=== PATIENT | female | born 1945 | race Caucasian/White ===

== ENCOUNTER → 2018-04-26 10:54 | Outpatient (CLI) | payer MEDICARE, OTHER, SELFPAY | PROVIDERS: PCP Nurse Practitioner Family; Visit Provider Physician Assistant | DX: Z01.818 Encounter for other preprocedural examination (principal) | CPT/HCPCS: 93005 ==

== ENCOUNTER 2018-05-17 06:36 | Inpatient (IN) | payer MEDICARE, BC, SELFPAY ==
[2018-04-25 09:41] VITALS: BMI 31.9
[2018-05-17] VITALS (23 sets, daily range): BP systolic 93–123; BP diastolic 32–84; PULSE 69–101; RESP 10–22; TEMP 36.2–37.6; O2SAT 91–97; BMI 32.6
--- NOTE | 2018-05-17 | DI.RAD.S_ITS ---
PROCEDURE: XR LUMBAR SPINE 2-3V INDICATIONS: L4-5, L5-S1 TLIF TECHNIQUE: 2 views of the lumbar spine were acquired. COMPARISON: [facility], CR, XR LUMBAR SPINE 2 OR 3 VIEWS, 11/15/2017, 11:13. FINDINGS: Bones: Intraoperative AP and lateral images of the lumbosacral junction show the placement of disc spacers at L4-5 and L5-S1, posterior fusion with transpedicular screws and vertical connecting rods bilaterally L4-S1 Soft tissues: Overlying bowel gas pattern is normal. No suspicious soft tissue calcifications. IMPRESSION: Intraoperative imaging of posterior discectomy and fusion L4-5 and L5-S1 Dictated by: Issac Perez M.D. on 05/17/2018 at 11:50 Approved by: Issac Perez M.D. on 05/17/2018 at 11:51
[2018-05-17] MEDS: LACTATED RINGERS 1,000 ML 42 ML IV ×2 (07:15→10:46)
[2018-05-17] MEDS: ALBUTEROL 2.5 MG/3 ML NEB (ADULT) INH ×2 (07:48→11:20)
[2018-05-17] MEDS: ALBUTEROL/IPRATROPIUM 3 ML AMPUL INH (07:52)
[2018-05-17] MEDS: CEFAZOLIN 2 GM/100 ML FROZ.PIGGY IV (07:56)
--- NOTE | 2018-05-17 07:58 | PM.PREOP ---
Pre-operative Note Interval Note Pre-op Check: Yes History & Physical Reviewed by Physician, Yes Exam Performed and Yes History & Physical exam performed today by Physician Changes: No
--- NOTE | 2018-05-17 08:29 | SUR.OPER ---
Prone on spine table, head in foam head support, padded chest and pelvic supports, gel pad at knees, lower legs supported by pillows; nipples, genitalia and toes free of pressure, arms secured on foam padded arm boards at <90 degrees abduction. Tape over blanket at thigh secured to table.
[2018-05-17] MEDS: BUPIVACAINE 0.25% W/ EPI VIAL 30 ML INJ (08:37)
[2018-05-17] MEDS: BUPIVACAINE LIPOSOME 266 MG/20 ML VIAL INJ (10:39)
--- NOTE | 2018-05-17 11:07 | PM.OP.1 ---
Operative Date/Time/Diagnoses Date of procedure: 05/17/18 Time of procedure: 08:08 Pre-op diagnosis: 1. L4-5, L5-S1 spinal stenosis 2. L4-5, L5-S1 spondylosis with radiculopathy Post-op diagnosis: same Procedure & Clinicians Procedure: 1. L4-5, L5-S1 Postero-lateral and posterior interbody fusion 2. L4-5, L5-S1 interbody cage placement. 3. L4-5, L5-S1 decompressive laminectomy with bilateral facetecomies 4. L4-5, L5-S1 Posterior segmental instrumentation 5. [place] of bone marrow from iliac crest 6. Utilization of microsurgical technique and operating microscope Same procedure as scheduled: Yes Indications: Patient has been having chronic back pain and worsening lumbar radiculopathy. Patient failed multiple conservative management with worsening pain weakness and numbness in her lower extremity. Patient has been having difficulty performing activity of daily living. After discussing risks benefits of treatment options, patient elected proceed with surgery. Surgeon: Alyssa Chavez Chimney Sweeper: Cynthia Garner Click Yes if Unassisted: No Anesthesia Type: General Operative Notes Closure Type: primary Specimen(s): none sent Implants & Drains: Globus revolve screws, Rise cage Applied: catheter Estimated Blood Loss (mL): 50 Blood products transfused: none Procedure in detail: Patient was seen in the preoperative area. Risks and benefits of the surgery was discussed with the patient. Informed consent was obtained from the patient and placed in the chart. Surgical site was marked. Patient was taken to the operative room. General anesthesia was administered. Prophylactic antibiotic was given to the patient less than 30 min before the incision was made. Patient was placed into a prone position on the Imtiaz table. Patient's back was then prepped and draped in the sterile fashion. Time-out was performed at this time. Using AP and lateral C-arm imaging the interval between L4-S1 was identified and marked on patient's back. A 2 inch incision 2 in from midline was made on the left side first. The fascia was incised in line with skin incision. Globus MARS retractors was placed inside the incision and docked onto the L4 and L5 lamina. Using microsurgical technique and operating microscope, a L4 and L5 laminectomy and L4-5 L5-S1 facetectomy was performed using a Kerrison rongeur. The disc space at L4-5, L5-S1 was identified. And a total diskectomy was performed at L4-5, L5-S1 level. The endplates were decorticated using a rasp and shaver. The total diskectomy and decortication was performed at L4-5, L5-S1 level in order to to accomplish a L4-5, L5-S1 fusion. The local bone from the laminectomy and facetectomy was saved for local bone grafting. After the total diskectomy and decortication was completed, Globus viacell bone graft material was combined with local bone that was harvested earlier. At this time, a separate skin is incision was made over the iliac crest. A Jamshidi needle was inserted into the iliac crest through a separate skin incision. 5 cc of bone marrow aspiration was obtained through the separate skin incision using a Jamshidi needle from the iliac crest. The bone marrow aspiration was combined with local bone and the via cell bone grafting material. The bone grafting material was placed into the L4-5, L5-S1 interbody space along with two cages, one expandable cage at each level. The cages were expanded to their maximum height using the torque limiting screwdriver. At this time a mirror image incision was made on the right side. The fascia was incised in line with the skin incision. Globus MARS retractor was inserted and docked onto the L4-5, L5-S1 posterolateral gutter. Using the power drill, posterior-lateral decortication was performed at L4-5, L5-S1 level until bleeding cortical bone was identified. The remaining bone grafting material was placed into the L4-5 L5-S1 posterior lateral gutter he order to accomplish posterolateral fusion at the L4-5 L5-S1 levels. Using the double C-arm technique, pedicle screws were placed into the L4, L5, S1 pedicles bilaterally. This was done by placing the Jamshidi needle into the pedicles, then placing the guidewires over the Jamshidi needle, and finally placing the cannulated screws over the guidewires bilaterally. After the pedicle screws were placed, 2 titanium rods was locked into the heads of the pedicle screws using locking caps and torque limiting screwdriver. Total 6 pedicles screws were placed. After all the hardware was placed, and confirmed with AP and lateral C-arm imaging, the wound was then irrigated with sterile normal saline and packed with Ray-Machelle gauze for 3 min to accomplish hemostasis. After the gauze was removed the deep fascia was closed with #1 Vicryl suture. The subcutaneous layer was closed with 2-0 Vicryl. The skin was closed with skin eric. Patient tolerated the procedure well. There were no complications. Complications: none Condition: stable Disposition: PACU Plan for aftercare: Admit to inpatient hospital
[2018-05-17] MEDS: HYDROMORPHONE 2 MG INJ 0.5 MG IV ×4 (11:34→11:49)
[2018-05-17] MEDS: fentaNYL 100 MCG/2 ML INJ 50 MCG IV (11:59)
--- NOTE | 2018-05-17 12:08 | SUR.PHASEI ---
1156: Dr. Pope to bedside. I notified him of pt's new LBBB on the PACU monitor. I obtained an EKG which confirmed a new LBBB. Dr. Pope took the EKG and said he would get back to me with a plan. Pt denies chest pain, is not diaphoretic but is requiring 4L O2 per NC while asleep. Pt has bilateral expratory wheezing in upper lobes.
[2018-05-17] MEDS: ASPIRIN 325 MG TABLET PO (12:15)
--- NOTE | 2018-05-17 12:39 | SUR.PHASEI ---
1218: noted pt's bedside ECG with new RBBB, bigeminy. Pt also noted to be very diaphoretic. Pt denies any chest pain or discomfort. BP's remain WNL. Dr. Pope notified. 1235: Lab to bedside to draw Cardiac enzymes and BUN.
--- NOTE | 2018-05-17 12:42 | SUR.PHASEI ---
Pt chewed 325mg aspirin at [address] Poep's order.
[2018-05-17 13:02] LABS: Blood Urea Nitrogen 18 mg/dL (7-17); Calcium 9.2 mg/dL (8.4-10.2); Carbon Dioxide 31 mmol/L (22-32); Chloride 102 mmol/L (98-107); Creatine Kinase 225 U/L (30-135); Estimated Glomerular Filt Rate 54.3 mL/min (>60); Glucose 147 mg/dL (80-110); HEMOLYSIS < 15 (0-50); Potassium 3.4 mmol/L (3.4-5.1); Sodium 142 mmol/L (137-145)
[2018-05-17 13:15] LABS: Troponin I < 0.012 ng/mL (0.01-0.034)
[2018-05-17 13:17] LABS: CKMB % Relative Index 1.6 % (1.5-5.0); Creatine Kinase MB 3.57 ng/mL (<2.37)
[2018-05-17] MEDS: SODIUM CHLORIDE 0.9% 1,000 ML 100 ML IV (14:20)
[2018-05-17] MEDS: OXYCODONE IR 5 MG TABLET 10 MG PO ×2 (14:21→20:24)
[2018-05-17] MEDS: hydrOXYzine pamoate 25 MG CAPSULE PO ×2 (14:21→20:24)
--- NOTE | 2018-05-17 15:09 | PC.NURSE ---
Ortho: Recieved from pacu, pt has new ecg changes per them. O2 on at 2L nc, sats 98%. Pt has her cpap in the car and her family will bring it in for tonight. Pt denies any c/p and this is new to her and her spouse. Scd's are on, pain in control with oxycodone. No sensation changes to the lower ext. The dressing is intact to the lower back. Required cues to log roll correctly. Hospitalist in to see pt. Ecg and lab work ordered for 1529 today. Cont w/poc.
--- NOTE | 2018-05-17 15:25 | PT.IPTN ---
Current Diagnoses Other secondary scoliosis, lumbar region (05/17/18) Other spondylosis with radiculopathy, lumbar region (05/17/18) Spinal stenosis, lumbar region without neurogenic claudication (05/17/18) Surgery Performed Operation Date: 05/17/18 07:45 Actual Procedures p L4-5,L5-S1 TLIF w/Posterior Instru. - Alyssa Chavez MD Physical Therapy Treatment Note M3 PT-IP Subjective Start: 05/17/18 15:25 Freq: NEEDED Status: Active Protocol: Document 05/17/18 15:25 MDD (Rec: 05/17/18 15:32 MDD [id number]) Subjective Physical Therapy Visit Type Type Patient Refusal Visit Start Time 15:10 Visit Stop Time 15:20 Total Visit Minutes 10 Notes Attempted to see pt at above time. She refused OOB activity today reporting pain at 7/10. She requested to hold off until tomorrow. Home environment information: Lives with , Nitin, in [facility] in a one story home. 2 steps to enter with no railings. Previously independent ambulation with no AD. Has a FWW, single point cane. Family members have a shower chair available for use . Walk in shower with small lip to enter, raised toilet seat. Son and daughter in law also present in the room, who live in [facility]. Pt is a homemaker, previously independent with all ADL's and driving. Number of SHIPYARD HELPER Visits 0 Therapy Pain Assessment Pain When Pain Assessed At Rest Pain Present Pain Present Pain Reported Location Back Intensity 7 Scale Used Numeric (1 - 10) Description Aching
--- NOTE | 2018-05-17 16:22 | P.CONS_ITS ---
History of Present Illness Date Patient Seen: 05/17/18 Time Patient Seen: 14:07 Chief complaint: [id number] Reason for consult: Contacted by anesthesiologist for left bundle branch on ECG Requesting provider: Alyssa Chavez Narrative: [age] years of age patient underwent a L4-S1 lumbar fusion by Dr. Chavez industrial automation specialist in spine. Anesthesiologist notes patient with what appears to be a new left bundle branch block. This was in the postoperative setting. Patient has no prior known history of atherosclerotic heart disease no history of congestive heart failure no history of arrhythmias. Her cardiac risk factors are hyperlipidemia and hypertension. Patient is a nonsmoker. Patient without known early history of coronary artery disease in first-degree relatives. Patient is a nondiabetic. [facility] Medical History Arthritis (Acute) COPD (chronic obstructive pulmonary disease) (Acute) Depression (Acute) Edema (Acute) GERD (gastroesophageal reflux disease) (Acute) HTN (hypertension) (Acute) Helicobacter pylori (H. pylori) infection (Acute) History of hysterectomy (Acute) Hyperlipidemia (Acute) Martins neuroma (Acute) JAMISON on CPAP (Acute) Ovarian cyst (Acute) Pre-diabetes (Acute) Spinal stenosis (Acute) Trigger finger (Acute) Surgical History History of arthroplasty of right knee (Acute) History of carpal tunnel surgery of right wrist (Acute) History of delivery (Acute) Hx of appendectomy (Acute) Hx of bilateral oophorectomy (Acute) Hx of cholecystectomy (Acute) Hx of microdiscectomy (Acute) Hx of shoulder surgery (Acute) Social History household members: spouse Smoking Status: Never smoker alcohol intake: current Meds Home Medications Medication Instructions Recorded Confirmed Type albuterol sulfate 2 puff INHALATION Q4-6H PRN 04/25/18 05/17/18 History citalopram 20 mg PO QAM 04/25/18 05/17/18 History clonidine HCl 0.1 mg PO BID 04/25/18 05/17/18 History diclofenac sodium 50 mg PO QAM 04/25/18 05/17/18 History doxazosin 2 mg PO BID 04/25/18 05/17/18 History esomeprazole magnesium 40 mg PO QPM 04/25/18 05/17/18 History fluticasone-salmeterol [Advair 1 inh INHALATION BID 04/25/18 05/17/18 History Diskus] hydrochlorothiazide 50 mg PO DAILY 04/25/18 05/17/18 History loratadine 1 tab PO PRN PRN 04/25/18 05/17/18 History losartan 100 mg PO QAM 04/25/18 05/17/18 History metoprolol succinate 50 mg PO QAM 04/25/18 05/17/18 History montelukast 10 mg PO QPM 04/25/18 05/17/18 History simvastatin 10 mg PO QPM 04/25/18 05/17/18 History Allergies Allergy/AdvReac Type Severity Reaction Status Date / Time adhesive tape Allergy Intermediate Rash Verified 05/17/18 07:01 Penicillins Allergy Mild Rash Verified 05/17/18 07:01 Review of Systems Review of Systems Patient with no chest pain or shortness of breath no nausea no palpitations. All systems reviewed & are unremarkable except as noted in HPI and below Exam Vital Signs (past 8 hours): - 05/17/18 11:03 05/17/18 11:08 05/17/18 11:13 Temperature 99 F Pulse Rate 91 H 93 H 92 H Respiratory Rate 22 14 11 L Blood Pressure 121/64 H 110/80 106/74 Pulse Oximetry 92 93 95 05/17/18 11:18 05/17/18 11:33 05/17/18 11:48 Temperature Pulse Rate 87 90 88 Respiratory Rate 12 12 12 Blood Pressure 122/84 H 120/75 122/79 H Pulse Oximetry 95 95 96 05/17/18 12:03 05/17/18 12:18 05/17/18 12:40 Temperature Pulse Rate 89 101 H 85 Respiratory Rate 10 L 10 L 10 L Blood Pressure 99/68 122/77 H 93/66 Pulse Oximetry 91 96 95 05/17/18 12:55 05/17/18 13:10 05/17/18 13:25 Temperature Pulse Rate 83 81 84 Respiratory Rate 10 L 10 L 12 Blood Pressure 100/60 96/32 L 99/69 Pulse Oximetry 95 94 97 05/17/18 13:40 05/17/18 13:50 05/17/18 14:20 Temperature 97.7 F 97.5 F L Pulse Rate 83 78 74 Respiratory Rate 11 L 16 18 Blood Pressure 115/71 110/69 107/69 Pulse Oximetry 96 95 97 05/17/18 14:50 Temperature 97.9 F Pulse Rate 75 Respiratory Rate 16 Blood Pressure 105/64 Pulse Oximetry 97 Oxygen Delivery Method Nasal Cannula Oxygen Flow Rate 4 Narrative Exam Narrative: Constitutional general appearance patient has noted awake and alert no apparent distress at rest family at bedside visiting. Psychiatric Well oriented mood is pleasant affect is appropriate Skin No rashes or lesions nonjaundiced turgor normal Eyes Pupils are equal round and reactive to light Ears nose and throat Hearing is grossly intact nose with septum to midline no bleeding throat no oropharyngeal lesions dentition normal for age Respiratory Fairly clear to auscultation no significant wheezes no crackles fair air movement is noted Cardiovascular Regular in rate and rhythm no murmurs PMI nondisplaced pulses +3 to extremities GI Early nontender positive bowel sounds no masses no lesions no bruits no guarding Lymph nodes No lymphadenopathy to neck or axilla Musculoskeletal No focal neurologic changes are noted motor strength 5/5 no clubbing is noted range of motion appears normal Neurologic Cranial nerves 2-12 grossly intact proprioception appears intact no lateralizing neurologic deficit noted Objective Labs Result Diagrams: 05/17/18 12:35 Labs: Laboratory Results - last 24 hr 05/17/18 12:35 Sodium 142 Potassium 3.4 Chloride 102 Carbon Dioxide 31 BUN 18 H Creatinine 1.00 Estimated GFR 54.3 L BUN/Creatinine Ratio 18.0 Glucose 147 H Calcium 9.2 Total Creatine Kinase 225 H CK-MB (CK-2) 3.57 H CK-MB (CK-2) Rel Index 1.6 Troponin I < 0.012 Assessment & Plan Plan: Assessment/Plan Narrative: 1. New left bundle branch block LBBB most often occurs in patients with underlying heart disease and associated with progressive conducting system disease. LBBB can also be seen in asymptomatic patients with a structurally normal heart. The presence of LBBB complicates the diagnosis of myocardial ischemia/infarction and interferes with the interpretation of exercise testing. Apart from cases of acute anterior [place], LBBB is not generally the result of a single clinical entity but rather results from slowly progressive degenerative disease involving the conduction system. Numerous chronic conditions can contribute to myocardial fibrosis such as hypertension, coronary artery disease and cardiomyopathies.In patients with significant LV dysfunction, LBBB results in left ventricular dyssynchrony and may contribute to heart failure. This Patient is not demonstrating any symptoms of congestive heart failure nor respiratory distress. No chest pain nor angina equivalent noted such as shortness of breath or nausea. Will repeat the EKG and cardiac enzymes at the 3 hrs and 6 hours after the left bundle-branch finding was noted. Close monitoring of patient's hemodynamic status as well. A repeat EKG as well as troponin cardiac enzyme in a.m. also requested. 2. History of hypertension hyperlipidemia Resume patient's home medications as tolerated. Time spent for patient 50 min
[2018-05-17] MEDS: CLINDAMYCIN 900 MG/50 ML PIGGYBACK 50 MG IV (16:51)
[2018-05-17] MEDS: HYDROMORPHONE 0.5 MG INJ IV (16:58)
[2018-05-17 17:09] LABS: Troponin I < 0.012 ng/mL (0.01-0.034)
[2018-05-17] MEDS: MONTELUKAST 10 MG TABLET PO (17:38)
[2018-05-17] MEDS: SIMVASTATIN 10 MG TABLET PO (17:38)
[2018-05-17 19:12] LABS: Creatine Kinase 297 U/L (30-135)
[2018-05-17 19:24] LABS: Troponin I < 0.012 ng/mL (0.01-0.034)
[2018-05-17] MEDS: FLUTICASONE/SALMETEROL 250/50 14 PUFF DISKUS INH (19:25)
[2018-05-17 19:27] LABS: Creatine Kinase MB 5.83 ng/mL (<2.37)
[2018-05-17] MEDS: SENNOSIDES 8.6 MG TABLET 17.2 MG PO (20:24)
[2018-05-17] MEDS: DOCUSATE 100 MG CAPSULE PO (20:24)
[2018-05-17] MEDS: cloNIDine 0.1 MG TABLET PO (20:24)
[2018-05-17] MEDS: DOXAZOSIN 2 MG TABLET PO (20:25)
[2018-05-18] VITALS (16 sets, daily range): BP systolic 96–120; BP diastolic 52–66; PULSE 91–101; RESP 16–20; TEMP 37.3–38.1; O2SAT 83–95
[2018-05-18] MEDS: SODIUM CHLORIDE 0.9% 1,000 ML 100 ML IV ×4 (00:29→21:24)
[2018-05-18] MEDS: hydrOXYzine pamoate 25 MG CAPSULE PO ×3 (00:30→15:42)
[2018-05-18] MEDS: CLINDAMYCIN 900 MG/50 ML PIGGYBACK 50 MG IV (00:30)
[2018-05-18] MEDS: OXYCODONE IR 5 MG TABLET 10 MG PO ×5 (00:30→15:42)
[2018-05-18 05:51] LABS: Add Manual Diff / Slide Review NO; Basophils Percent Auto 0.4 % (0-2); Eosinophils Percent Auto 0.9 % (2-4); Hematocrit 31.2 % (36-46); Hemoglobin 10.7 g/dL (12.0-16.0); Lymphocytes Percent Auto 13.4 % (25-40); Mean Corpuscular HGB Conc 34.5 % (30-36); Monocytes Percent Auto 9.8 % (3-14); Neutrophils Absolute Auto 6800 /uL (3000-5900); Neutrophils Percent Auto 75.5 % (50-75); Platelet Count 197 X10^3/uL (150-400); Red Blood Cell Count 3.46 X10^6/uL (4.0-5.2); Red Cell Distribution Width 13.3 % (11.6-14.8)
[2018-05-18] MEDS: PANTOPRAZOLE 40 MG TABLET PO (05:57)
[2018-05-18 06:02] LABS: Alanine Aminotransferase 34 IU/L (9-52); Albumin 3.6 g/dL (3.5-5.0); Albumin Globulin Ratio 1.6 (1.0-2.8); Alkaline Phosphatase 41 U/L (38-126); Aspartate Aminotransferase 31 IU/L (14-36); Blood Urea Nitrogen 18 mg/dL (7-17); Calcium 8.4 mg/dL (8.4-10.2); Carbon Dioxide 31 mmol/L (22-32); Chloride 100 mmol/L (98-107); Creatine Kinase 434 U/L (30-135); Estimated Glomerular Filt Rate 54.3 mL/min (>60); Globulin 2.3 g/dL (1.7-4.1); Glucose 121 mg/dL (80-110); HEMOLYSIS < 15 (0-50); Potassium 3.5 mmol/L (3.4-5.1); Sodium 138 mmol/L (137-145); Total Protein 5.9 g/dL (6.3-8.2)
[2018-05-18 06:17] LABS: Troponin I < 0.012 ng/mL (0.01-0.034)
[2018-05-18 06:18] LABS: CKMB % Relative Index 1.3 % (1.5-5.0); Creatine Kinase MB 5.44 ng/mL (<2.37)
[2018-05-18] MEDS: FLUTICASONE/SALMETEROL 250/50 14 PUFF DISKUS INH ×2 (07:42→19:38)
[2018-05-18] MEDS: ALBUTEROL HFA 60 PUFF/8 GM INH INH (07:43)
--- NOTE | 2018-05-18 07:51 | P.PN_ITS ---
Subjective Date Patient Seen: 05/18/18 Interval history: Duplicate note in error Exam Vital Signs (past 8 hours): - 05/18/18 03:00 05/18/18 03:52 05/18/18 06:00 Temperature 99.2 F 99.2 F Pulse Rate 94 H Respiratory Rate 18 Blood Pressure 104/62 Pulse Oximetry 91 92 05/18/18 07:45 Temperature Pulse Rate 91 H Respiratory Rate 16 Blood Pressure Pulse Oximetry 94 Fraction of Inspired Oxygen 24 Oxygen Delivery Method Nasal Cannula Oxygen Flow Rate 1 Objective Labs Result Diagrams: 05/18/18 05:36 05/18/18 05:36 Labs: Laboratory Results - last 24 hr 05/17/18 05/17/18 05/17/18 12:35 16:27 18:35 WBC RBC Hgb Hct MCV MCH MCHC RDW Plt Count Neut % (Auto) Lymph % (Auto) [place] % (Auto) Eos % (Auto) Baso % (Auto) Neut # (Auto) Sodium 142 Potassium 3.4 Chloride 102 Carbon Dioxide 31 BUN 18 H Creatinine 1.00 Estimated GFR 54.3 L BUN/Creatinine Ratio 18.0 Glucose 147 H Calcium 9.2 Total Bilirubin AST ALT Alkaline Phosphatase Total Creatine Kinase 225 H 297 H CK-MB (CK-2) 3.57 H 5.83 H D CK-MB (CK-2) Rel Index 1.6 2.0 Troponin I < 0.012 < 0.012 < 0.012 Total Protein Albumin Globulin Albumin/Globulin Ratio 05/18/18 05/18/18 05:36 05:36 WBC 9.0 RBC 3.46 L Hgb 10.7 L Hct 31.2 L MCV 90.0 MCH 31.0 MCHC 34.5 RDW 13.3 Plt Count 197 Neut % (Auto) 75.5 H Lymph % (Auto) 13.4 L [place] % (Auto) 9.8 Eos % (Auto) 0.9 L Baso % (Auto) 0.4 Neut # (Auto) 6800 H Sodium 138 Potassium 3.5 Chloride 100 Carbon Dioxide 31 BUN 18 H Creatinine 1.00 Estimated GFR 54.3 L BUN/Creatinine Ratio 18.0 Glucose 121 H Calcium 8.4 Total Bilirubin 1.0 AST 31 ALT 34 Alkaline Phosphatase 41 Total Creatine Kinase 434 H CK-MB (CK-2) 5.44 H CK-MB (CK-2) Rel Index 1.3 L Troponin I < 0.012 Total Protein 5.9 L Albumin 3.6 Globulin 2.3 Albumin/Globulin Ratio 1.6 Assessment & Plan Post-op Postoperative Procedures Operation Date: 05/17/18 07:45 Actual Procedures Side Surgeon p L4-5,L5-S1 TLIF w/Posterior Instru. Alyssa Chavez MD Time Spent With Patient less than 15 minutes
--- NOTE | 2018-05-18 08:44 | PM.PNPO.1 ---
Subjective Date Patient Seen: 05/18/18 Time Patient Seen: 08:44 Interval history: Patient seen at bedside status post TLIF postop day 1. She is doing well, she is having some back pain however she denies any chest pain. She does have an active wheeze at this time. She has a history of asthma. Troponins that were drawn yesterday due to her new onset left bundle branch block in the PACU are negative. Exam Vital Signs (past 8 hours): - 05/18/18 03:00 05/18/18 03:52 05/18/18 06:00 Temperature 99.2 F 99.2 F Pulse Rate 94 H Respiratory Rate 18 Blood Pressure 104/62 Pulse Oximetry 91 92 05/18/18 07:45 05/18/18 08:18 Temperature Pulse Rate 91 H Respiratory Rate 16 Blood Pressure Pulse Oximetry 94 89 L Fraction of Inspired Oxygen 21 Oxygen Delivery Method Room Air Oxygen Flow Rate 0 Narrative Exam Narrative: Well-developed well-nourished in no acute distress. Alert and oriented x3. Positive inspiratory wheeze. Lumbar spine dressing clean dry and intact she is neurovascularly intact in the lower extremities. Calves are soft and compressible. No neurological deficits noted Objective Labs Result Diagrams: 05/18/18 05:36 05/18/18 05:36 Labs: Laboratory Results - last 24 hr 05/17/18 05/17/18 05/17/18 12:35 16:27 18:35 WBC RBC Hgb Hct MCV MCH MCHC RDW Plt Count Neut % (Auto) Lymph % (Auto) [place] % (Auto) Eos % (Auto) Baso % (Auto) Neut # (Auto) Sodium 142 Potassium 3.4 Chloride 102 Carbon Dioxide 31 BUN 18 H Creatinine 1.00 Estimated GFR 54.3 L BUN/Creatinine Ratio 18.0 Glucose 147 H Calcium 9.2 Total Bilirubin AST ALT Alkaline Phosphatase Total Creatine Kinase 225 H 297 H CK-MB (CK-2) 3.57 H 5.83 H D CK-MB (CK-2) Rel Index 1.6 2.0 Troponin I < 0.012 < 0.012 < 0.012 Total Protein Albumin Globulin Albumin/Globulin Ratio 05/18/18 05/18/18 05:36 05:36 WBC 9.0 RBC 3.46 L Hgb 10.7 L Hct 31.2 L MCV 90.0 MCH 31.0 MCHC 34.5 RDW 13.3 Plt Count 197 Neut % (Auto) 75.5 H Lymph % (Auto) 13.4 L [place] % (Auto) 9.8 Eos % (Auto) 0.9 L Baso % (Auto) 0.4 Neut # (Auto) 6800 H Sodium 138 Potassium 3.5 Chloride 100 Carbon Dioxide 31 BUN 18 H Creatinine 1.00 Estimated GFR 54.3 L BUN/Creatinine Ratio 18.0 Glucose 121 H Calcium 8.4 Total Bilirubin 1.0 AST 31 ALT 34 Alkaline Phosphatase 41 Total Creatine Kinase 434 H CK-MB (CK-2) 5.44 H CK-MB (CK-2) Rel Index 1.3 L Troponin I < 0.012 Total Protein 5.9 L Albumin 3.6 Globulin 2.3 Albumin/Globulin Ratio 1.6 Assessment & Plan Post-op Postoperative Procedures Operation Date: 05/17/18 07:45 Actual Procedures Side Surgeon p L4-5,L5-S1 TLIF w/Posterior Instru. Alyssa Chavez MD Patient will receive a nebulizer treatment for her inspiratory wheeze. She will continue with pain medication as needed and will be up with physical therapy today. Hopefully she will be ready for discharge tomorrow. All questions answered at the time of the exam. Time Spent With Patient less than 15 minutes Quality VTE Deep Vein Thrombosis/Pulmonary Embolism Present on Admission: No
[2018-05-18] MEDS: ALBUTEROL/IPRATROPIUM 3 ML AMPUL INH ×2 (08:59→19:42)
--- NOTE | 2018-05-18 09:45 | PC.NURSE ---
Found Guera to have temp. 100.6, HR 92 and BP down to 96/62. Called Dr. Cordova to inform her, and to discuss mult. cardiac meds which are now due. Per Dr. Cordova will hold Cozaar and Clonodine and proceed with giving Metopropol. Plan to include Dr. Romo, Hospitalist, when he rounds on this pt. Guera's troponins were all flat, but CKMB remains up since she is post-op. She is resting quietly in bed with exp. wheezes. She had just been given Duoneb and states she is always wheezy. Will have her use IS and continue to monitor VS.
--- NOTE | 2018-05-18 10:41 | PT.IIE ---
Current Diagnoses Other secondary scoliosis, lumbar region (05/17/18) Other spondylosis with radiculopathy, lumbar region (05/17/18) Spinal stenosis, lumbar region without neurogenic claudication (05/17/18) Surgery Performed Operation Date: 05/17/18 07:45 Actual Procedures p L4-5,L5-S1 TLIF w/Posterior Instru. - Alyssa Chavez MD Surgical History (Last Reviewed 05/17/18 @ 16:10 by Florentino Romo MD) History of arthroplasty of right knee (Acute) History of carpal tunnel surgery of right wrist (Acute) History of delivery (Acute) Hx of appendectomy (Acute) Hx of bilateral oophorectomy (Acute) Hx of cholecystectomy (Acute) Hx of microdiscectomy (Acute) Hx of shoulder surgery (Acute) Medical History (Last Reviewed 05/17/18 @ 16:06 by Florentino Romo MD) Arthritis (Acute) COPD (chronic obstructive pulmonary disease) (Acute) Depression (Acute) Edema (Acute) GERD (gastroesophageal reflux disease) (Acute) HTN (hypertension) (Acute) Helicobacter pylori (H. pylori) infection (Acute) History of hysterectomy (Acute) Hyperlipidemia (Acute) Martins neuroma (Acute) JAMISON on CPAP (Acute) Ovarian cyst (Acute) Pre-diabetes (Acute) Spinal stenosis (Acute) Trigger finger (Acute) Physical Therapy Inpatient Evaluation/Re-Eval M1 PT/OT-IP Prior Functional Status Start: 05/17/18 15:25 Freq: NEEDED Status: Active Protocol: Document 05/18/18 10:41 [facility] (Rec: 05/18/18 10:53 [facility] [id number]) Medical Review Prior Functional Status Medical History Reviewed Yes Communication normal Mobility and Gait independent with no AD Activities of Daily Living and IADL's independent Social History Household Members spouse Living Arrangements House Number of Floors (Floors) One Floor Number of Stairs To Enter/Railing? 2 stairs with no railing to front door. 1 step with no railing from garage. Home Environment High Toilet Walk in Shower Built-In Shower Seat Home Equipment Front Wheel Walker Straight Cane Employment Status Unemployed Additional Social History Comment family members have a shower chair with back/arm rests M2 PT-IP Current Condition Start: 05/17/18 15:25 Freq: NEEDED Status: Active Protocol: Document 05/18/18 10:41 [facility] (Rec: 05/18/18 10:53 [facility] [id number]) Physical Therapy Current Condition Current Condition Evaluation Date 05/18/18 Treatment Diagnosis L4-S1 TLIF 05/17/2018, impaired mobility Onset Date 05/17/18 Precautions Lumbar Precautions Log Roll No Twisting Limit Bending Lifting Restriction of 10 lbs Gait Belt above Incisional Area Weight Bearing Status Weight Bearing Status Weight Bear as Tolerated M3 PT-IP Subjective Start: 05/17/18 15:25 Freq: NEEDED Status: Active Protocol: Document 05/18/18 10:41 [facility] (Rec: 05/18/18 10:53 [facility] [id number]) Subjective Physical Therapy Visit Type Type Initial Evaluation Visit Start Time 10:00 Visit Stop Time 10:41 Total Visit Minutes 41 Number of DENTAL LAB TECHNICIAN Visits 0 Physical Therapy Visit Comments Patient Comments pt wants to go home tomorrow. Short Term Goals get moving Therapy Pain Assessment Pain When Pain Assessed At Rest Pain Present Pain Present Pain Reported Location Back Intensity 7 Scale Used Numeric (1 - 10) Pain Management Techniques Modification of Treatment M4 PT-IP Mobility and Gait Start: 05/17/18 15:25 Freq: NEEDED Status: Active Protocol: Document 05/18/18 10:41 [facility] (Rec: 05/18/18 10:53 [facility] [id number]) PT-Bed Mobility Assessment Rolling Type of Rolling Log Rolling Level of Assist Moderate Assistance 1 Person Assistance Supine to Sit Supine to Sit Moderate Assistance 1 Person Assistance Scooting Scooting to Edge of Bed Minimal Assistance PT-Transfer Assessment Sit to and From Stand Sit to and from Stand Contact Guard Assistance 1 Person Assistance Equipment Transfer Assistive Device Gait Belt Front Wheeled Walker Transfers Transfer Destination Chair Transfer Technique Stand Step Pivot Transfer Ability Level of Assist Contact Guard Assistance Comments Mobility Comments increased pain in R buttock in standing. Gait Assessment Gait Gait Assistance Required: Contact Guard Assist Distance (Feet) (feet) 5 Assistive Devices Assistive Device Gait Belt Front Wheeled Walker Gait Deviations General Gait Pattern Antalgic Decreased Stride Length Decreased Feet Clearance Factors Limiting Gait Function Factors Limiting Gait Function Decreased Activity Tolerance Decreased Strength Pain Poor Balance Comments Gait Comments BP 106/64 supine and 97/64 sitting after mobility- no c/o dizziness or lightheadedness PT-Balance Assessment Sitting Balance and Reactions Static Sitting Balance Ability Good Dynamic Sitting Balance Ability Good Standing Balance and Reactions Static Standing Balance Ability Fair Dynamic Standing Balance Ability Fair Device Used FWW M5 PT-IP Objective Assessments Start: 05/17/18 15:25 Freq: NEEDED Status: Active Protocol: Document 05/18/18 10:41 [facility] (Rec: 05/18/18 10:53 [facility] [id number]) Orientation Orientation/Cognition Level of Alertness Alert Strength Comments Strength Comments able to perform a SLR bilaterally when being assisted with donning socks Sensation Assessment Sensation Gross Sensation WNL Other Assessments Other Other Assessments R foot severe hallux valgus, pt reports OA. M6 PT-IP Treatment Start: 05/17/18 15:25 Freq: NEEDED Status: Active Protocol: Document 05/18/18 10:41 [facility] (Rec: 05/18/18 10:53 [facility] [id number]) Physical Therapy Treatment Education Education Provided Precautions Post-Op Packet Safety M7 PT-IP Assessment and Plan Start: 05/17/18 15:25 Freq: NEEDED Status: Active Protocol: Document 05/18/18 10:41 [facility] (Rec: 05/18/18 10:53 [facility] [id number]) PT Summary Assessment and Plan Potential Rehabilitation Potential Good Status of Condition at Evaluation Evolving Summary Impairments Pain Strength Balance Bed Mobility Transfers Gait Activity Tolerance Assessment Summary POD #1 L4-S1 TLIF. Pt able to take short, slow steps for gait but limited to 5 ft this session due to pain and given pt's hypotension to progress slowly with mobility. No c/o dizziness or lightheadedness but pt still 106/64 (at start of session) and 97/64 (at end of session). Pt would like to d/c home, but may require longer stay due to limited mobility and medical complexities. Expect pt to be able to d/c home, but more likely POD #3 or 4. Goals Bed Mobility Goal Standby Assistance Transfer Goal Standby Assistance Gait Goal Standby Assistance Front Wheel Walker Gait Distance 150 Other Goals up/down 2 steps with no rail, CGA, and SPC Days to Meet Goals 3 Frequency of Treatment Frequency Of Treatment Twice a Day Treatment Plan Physical Therapy Treatment Plan Bed Mobility Training Transfer Training Gait Training Therapeutic Exercise Balance Retraining Discharge Planning Hot or Cold Pack Neuromuscular Re-ed Recommendations To Nursing Amount of Assist Needed 2 Person Assist Discharge Recommendations PT Discharge Recommendations Home with Assistance
[2018-05-18] MEDS: METOPROLOL ER 50 MG TABLET PO (11:26)
[2018-05-18] MEDS: CITALOPRAM 20 MG TABLET PO (11:27)
[2018-05-18] MEDS: DOCUSATE 100 MG CAPSULE PO ×2 (11:27→20:21)
--- NOTE | 2018-05-18 14:29 | PT.IPTN ---
Current Diagnoses Other secondary scoliosis, lumbar region (05/17/18) Other spondylosis with radiculopathy, lumbar region (05/17/18) Spinal stenosis, lumbar region without neurogenic claudication (05/17/18) Surgery Performed Operation Date: 05/17/18 07:45 Actual Procedures p L4-5,L5-S1 TLIF w/Posterior Instru. - Alyssa Chavez MD Physical Therapy Treatment Note M2 PT-IP Current Condition Start: 05/17/18 15:25 Freq: NEEDED Status: Active Protocol: Document 05/18/18 10:41 [facility] (Rec: 05/18/18 10:53 [facility] [id number]) Physical Therapy Current Condition Current Condition Evaluation Date 05/18/18 Treatment Diagnosis L4-S1 TLIF 05/17/2018, impaired mobility Onset Date 05/17/18 Precautions Lumbar Precautions Log Roll No Twisting Limit Bending Lifting Restriction of 10 lbs Gait Belt above Incisional Area Weight Bearing Status Weight Bearing Status Weight Bear as Tolerated M3 PT-IP Subjective Start: 05/17/18 15:25 Freq: NEEDED Status: Active Protocol: Document 05/18/18 14:27 [facility] (Rec: 05/18/18 14:28 [facility] [id number]) Subjective Physical Therapy Visit Type Notes Pt states pain level 3/10. She was in bed with O2 off, o2 sats 92% on RA. BP 92/51 in supine. Unable to work with pt due to low BP. RN informed. Will see pt in am. Recommendations To Nursing Amount of Assist Needed 2 Person Assist Discharge Recommendations PT Discharge Recommendations Home with Assistance
--- NOTE | 2018-05-18 15:57 | OT.IP.EVAL ---
Current Diagnoses Other secondary scoliosis, lumbar region (05/17/18) Other spondylosis with radiculopathy, lumbar region (05/17/18) Spinal stenosis, lumbar region without neurogenic claudication (05/17/18) Surgery Performed Operation Date: 05/17/18 07:45 Actual Procedures p L4-5,L5-S1 TLIF w/Posterior Instru. - Alyssa Chavez MD Past Medical History (Last Reviewed 05/17/18 @ 16:06 by Florentino Romo MD) Arthritis (Acute) COPD (chronic obstructive pulmonary disease) (Acute) Depression (Acute) Edema (Acute) GERD (gastroesophageal reflux disease) (Acute) HTN (hypertension) (Acute) Helicobacter pylori (H. pylori) infection (Acute) History of hysterectomy (Acute) Hyperlipidemia (Acute) Martins neuroma (Acute) JAMISON on CPAP (Acute) Ovarian cyst (Acute) Pre-diabetes (Acute) Spinal stenosis (Acute) Trigger finger (Acute) Surgical History (Last Reviewed 05/17/18 @ 16:10 by Florentino Romo MD) History of arthroplasty of right knee (Acute) History of carpal tunnel surgery of right wrist (Acute) History of delivery (Acute) Hx of appendectomy (Acute) Hx of bilateral oophorectomy (Acute) Hx of cholecystectomy (Acute) Hx of microdiscectomy (Acute) Hx of shoulder surgery (Acute) Occupational Therapy Inpatient Evaluation/Re-Eval M1 PT/OT-IP Prior Functional Status Start: 05/17/18 15:25 Freq: NEEDED Status: Active Protocol: Document 05/18/18 10:41 [facility] (Rec: 05/18/18 10:53 [facility] [id number]) Medical Review Prior Functional Status Medical History Reviewed Yes Communication normal Mobility and Gait independent with no AD Activities of Daily Living and IADL's independent Social History Household Members spouse Living Arrangements House Number of Floors (Floors) One Floor Number of Stairs To Enter/Railing? 2 stairs with no railing to front door. 1 step with no railing from garage. Home Environment High Toilet Walk in Shower Built-In Shower Seat Home Equipment Front Wheel Walker Straight Cane Employment Status Unemployed Additional Social History Comment family members have a shower chair with back/arm rests M1 PT/OT-IP Prior Functional Status Start: 05/18/18 15:47 Freq: NEEDED Status: Active Protocol: Document 05/18/18 15:47 [facility] (Rec: 05/18/18 15:57 [facility] [id number]) Medical Review Prior Functional Status Medical History Reviewed Yes Diet/Fluid Consistency Regular Thin Liquids Communication normal Mobility and Gait independent with no AD Activities of Daily Living and IADL's independent Social History Household Members spouse Living Arrangements House Number of Floors (Floors) One Floor Number of Stairs To Enter/Railing? 2 stairs with no railing to front door. 1 step with no railing from garage. Home Environment High Toilet Walk in Shower Built-In Shower Seat Home Equipment Front Wheel Walker Straight Cane Employment Status Unemployed Additional Social History Comment family members have a shower chair with back/arm rests M2 OT-IP Current Condition Start: 05/18/18 15:47 Freq: Status: Active Protocol: Document 05/18/18 15:47 [facility] (Rec: 05/18/18 15:57 [facility] [id number]) Occupational Therapy Current Condition Current Condition Evaluation Date 05/18/18 Treatment Diagnosis Lumbar stenosis Diagnosis Onset Date 05/17/18 Post Operative Precautions Lumbar Precautions Log Roll No Twisting Limit Bending Lifting Restriction of 10 lbs Gait Belt above Incisional Area Weight Bearing Status Weight Bearing Status Weight Bear as Tolerated M3 OT- IP Subjective and Pain Start: 05/18/18 15:47 Freq: Status: Active Protocol: Document 05/18/18 15:47 [facility] (Rec: 05/18/18 15:57 [facility] [id number]) OT- Subjective Occupational Therapy Visit Type Type Initial Evaluation Visit Start Time 14:35 Visit Stop Time 15:15 Total Visit Minutes 40 Occupational Therapy Visit Comments Patient/Caregiver Goals Pt hoping to go home when stable, however realizes that may need to do skilled rehab pending caregiver training. OT Pain Assessment Pain When Pain Assessed At Rest Pain Present Pain Present Denied Pain M4 OT- IP ADL's Start: 05/18/18 15:47 Freq: Status: Active Protocol: Document 05/18/18 15:47 [facility] (Rec: 05/18/18 15:57 [facility] [id number]) OT ADL-Grooming General Evaluation Areas Needing Assistance Retrieving/Set-up of Grooming Items Comments OT Grooming Comments While sitting. OT ADL-Dressing General Eval Lower Body Dressing Ability Maximum Assistance Areas Needing Assistance Socks M6 OT- IP Functional Cognition Start: 05/18/18 15:47 Freq: Status: Active Protocol: Document 05/18/18 15:47 [facility] (Rec: 05/18/18 15:57 [facility] [id number]) Cognitive Factors Limiting Selfcare Function Cognitive Ability Level of Alertness Alert Patient Orientation Name Place Situation Attention Span Ability Capable of Focused Attention Capable of Sustained Attention Ability to Follow Commands Able to Follow One Step Commands Safety Awareness Decreased Recall of Precautions Decreased Ability to Apply Precautions Cognitive Comments Cognitive Assessment Comments Pt needing reminders for back precautions. OT- Vision and Hearing OT- Hearing Assessment OT- Hearing Assessment WFL M7 OT- IP Mobility and Balance Start: 05/18/18 15:47 Freq: Status: Active Protocol: Document 05/18/18 15:47 [facility] (Rec: 05/18/18 15:57 [facility] [id number]) OT- Bed Mobility Assessment Rolling Type of Rolling Roll to Right Level of Assistance Moderate Assistance 2 Person Assistance Supine to Sit Supine to Sit Assist Maximum Assistance 2 Person Assistance Scooting Scooting to Edge of Bed Maximum Assistance 1 Person Assistance OT-Transfer Assessment Sit to and From Stand Sit to and from Stand Minimal Assistance 1 Person Assistance Transfers Transfer Ability Moderate Assistance 1 Person Assistance Technique Transfer Destination Bed Chair Transfer Technique Stand Step Pivot Devices Transfer Assistive Devices Gait Belt Front Wheeled Walker Comments Mobility Comments Pt having difficulty to roll and push up due to bad shoulders per pt, therefore needing assist x2 at this time . OT- Balance Assessment Standing Balance and Reactions Static Standing Balance Ability Fair Dynamic Standing Balance Ability Poor M8 OT- IP Objective Assessments Start: 05/18/18 15:47 Freq: Status: Active Protocol: Document 05/18/18 15:47 [facility] (Rec: 05/18/18 15:57 [facility] [id number]) OT Gross Range of Motion Upper Extremity Range of Motion ROM Impairments Grossly WFL for BUE. OT Strength Comments Strength Comments Decreased ability for BUE right greater than left to assist with bed mobility. OT-Muscle Tone Assessment Muscle Tone WNL Yes M9 OT- IP Assessment and Plan Start: 05/18/18 15:47 Freq: Status: Active Protocol: Document 05/18/18 15:47 [facility] (Rec: 05/18/18 15:57 [facility] [id number]) OT Summary Assessment and Plan Potential Rehabilitation Potential Good Analytic Complexity at Evaluation Moderate Summary OT Impairments Pain Strength Balance Tone Functional Cognition Functional Mobility Grooming Dressing Toileting Bathing Toilet Transfers Shower Transfers Progress Towards Goals Slow Progress due to Pain Slow Progress due to Medical Issues Slow Progress due to Activity Tolerance Assessment Summary Pt MOD complexity as steps, pain, decreased balance and activity tolerance, and now needing two person assist foro bed mobility needs. Pending caregiver training and progress, pt may need to go to skilled rehab prior to going home. Goals Grooming Goal Standby Assistance Dressing Goal Minimal Assistance Big Data Platform Architect Toileting Goal Standby Assistance Bathing Goal Minimal Assistance Toilet Transfer Goal Standby Assistance Shower Transfer Goal Minimal Assistance Patient/Caregiver Education Goal Demonstrate Post-Op Precautions Caregiver Independent Assisting Patient Days to Meet Goals 7 Frequency of Treatment Frequency Of Treatment Once a Day Treatment Plan OT Treatment Plan ADL Training Functional Cognition Training Functional Mobility Patient/Family Education Discharge Planning Other Treatment Recommendations and Next Practice AED for dressing Treatment Focus needs, caregiver training with Discharge Recommendations OT Discharge Recommendations SNF Rehab Other Discharge Recommendations Home with pending caregiver training and pt's progress. Home Equipment Needs BSC, shower chair
[2018-05-18] MEDS: SIMVASTATIN 10 MG TABLET PO (17:24)
[2018-05-18] MEDS: MONTELUKAST 10 MG TABLET PO (17:24)
--- NOTE | 2018-05-18 18:46 | PM.CN ---
History of Present Illness Date Patient Seen: 05/18/18 Time Patient Seen: 11:53 Chief complaint: [id number] Reason for consult: Requested to evaluate the patient for a new left bundle branch block Requesting provider: Alyssa Chavez Narrative: History of present illness New onset left bundle branch block following surgery due lumbar spine with fusion by Dr. Jenkins. [facility] Medical History Arthritis (Acute) COPD (chronic obstructive pulmonary disease) (Acute) Depression (Acute) Edema (Acute) GERD (gastroesophageal reflux disease) (Acute) HTN (hypertension) (Acute) Helicobacter pylori (H. pylori) infection (Acute) History of hysterectomy (Acute) Hyperlipidemia (Acute) Martins neuroma (Acute) JAMISON on CPAP (Acute) Ovarian cyst (Acute) Pre-diabetes (Acute) Spinal stenosis (Acute) Trigger finger (Acute) Surgical History History of arthroplasty of right knee (Acute) History of carpal tunnel surgery of right wrist (Acute) History of delivery (Acute) Hx of appendectomy (Acute) Hx of bilateral oophorectomy (Acute) Hx of cholecystectomy (Acute) Hx of microdiscectomy (Acute) Hx of shoulder surgery (Acute) Social History household members: spouse Smoking Status: Never smoker alcohol intake: current Meds Home Medications Medication Instructions Recorded Confirmed Type albuterol sulfate 2 puff INHALATION Q4-6H PRN 04/25/18 05/17/18 History citalopram 20 mg PO QAM 04/25/18 05/17/18 History clonidine HCl 0.1 mg PO BID 04/25/18 05/17/18 History diclofenac sodium 50 mg PO QAM 04/25/18 05/17/18 History doxazosin 2 mg PO BID 04/25/18 05/17/18 History esomeprazole magnesium 40 mg PO QPM 04/25/18 05/17/18 History fluticasone-salmeterol [Advair 1 inh INHALATION BID 04/25/18 05/17/18 History Diskus] hydrochlorothiazide 50 mg PO DAILY 04/25/18 05/17/18 History loratadine 1 tab PO PRN PRN 04/25/18 05/17/18 History losartan 100 mg PO QAM 04/25/18 05/17/18 History metoprolol succinate 50 mg PO QAM 04/25/18 05/17/18 History montelukast 10 mg PO QPM 04/25/18 05/17/18 History simvastatin 10 mg PO QPM 04/25/18 05/17/18 History Allergies Allergy/AdvReac Type Severity Reaction Status Date / Time adhesive tape Allergy Intermediate Rash Verified 05/17/18 07:01 Penicillins Allergy Mild Rash Verified 05/17/18 07:01 Review of Systems Review of Systems Review of systems No chest pain or shortness of breath no palpitations no nausea Exam Vital Signs (past 8 hours): - 05/18/18 13:00 05/18/18 15:38 05/18/18 15:42 Temperature 99.8 F H 100.6 F H Pulse Rate 95 H 101 H 101 H Respiratory Rate 18 20 Blood Pressure 102/61 100/52 L 120/52 L Pulse Oximetry 89 L 94 05/18/18 17:02 Temperature 99.6 F Pulse Rate Respiratory Rate Blood Pressure Pulse Oximetry Fraction of Inspired Oxygen 24 Oxygen Delivery Method Room Air Oxygen Flow Rate 1 Narrative Exam Narrative: General appearance Patient is awake and alert no apparent distress family at bedside visiting Psychiatric Patient is well-oriented mood is pleasant affect is appropriate Respiratory clear to auscultation no wheezes crackles Cardiovascular Regular rate rhythm no murmur rubs or gallops PMI is nondisplaced pulses +3 to extremities Gastrointestinal Fairly soft nontender positive bowel sounds no bruits Neurologic No focal neurologic changes noted. Cranial nerves 2-12 grossly intact Objective Labs Result Diagrams: 05/18/18 05:36 05/18/18 05:36 Labs: Laboratory Results - last 24 hr 05/17/18 05/18/18 05/18/18 18:35 05:36 05:36 WBC 9.0 RBC 3.46 L Hgb 10.7 L Hct 31.2 L MCV 90.0 MCH 31.0 MCHC 34.5 RDW 13.3 Plt Count 197 Neut % (Auto) 75.5 H Lymph % (Auto) 13.4 L [place] % (Auto) 9.8 Eos % (Auto) 0.9 L Baso % (Auto) 0.4 Neut # (Auto) 6800 H Sodium 138 Potassium 3.5 Chloride 100 Carbon Dioxide 31 BUN 18 H Creatinine 1.00 Estimated GFR 54.3 L BUN/Creatinine Ratio 18.0 Glucose 121 H Calcium 8.4 Total Bilirubin 1.0 AST 31 ALT 34 Alkaline Phosphatase 41 Total Creatine Kinase 297 H 434 H CK-MB (CK-2) 5.83 H D 5.44 H CK-MB (CK-2) Rel Index 2.0 1.3 L Troponin I < 0.012 < 0.012 Total Protein 5.9 L Albumin 3.6 Globulin 2.3 Albumin/Globulin Ratio 1.6 Assessment & Plan Plan: Assessment/Plan Narrative: 1. New left bundle branch block LBBB most often occurs in patients with underlying heart disease and associated with progressive conducting system disease. LBBB can also be seen in asymptomatic patients with a structurally normal heart. The presence of LBBB complicates the diagnosis of myocardial ischemia/infarction and interferes with the interpretation of exercise testing. Apart from cases of acute anterior AK, LBBB is not generally the result of a single clinical entity but rather results from slowly progressive degenerative disease involving the conduction system. Numerous chronic conditions can contribute to myocardial fibrosis such as hypertension, coronary artery disease and cardiomyopathies. In patients with significant LV dysfunction, LBBB results in left ventricular dyssynchrony and may contribute to heart failure. As noted in my history and exam yesterday, the Patient continues to not demonstrate symptoms of congestive heart failure or respiratory distress. No chest pain nor angina equivalent noted such as shortness of breath or nausea. The EKG and cardiac enzymes at the 3 hrs and 6 hours and again in AM today notes persistence of the left bundle-branch finding and not other changes noted to the ECG. I discussed with the patient and family at bedside to consider follow up with her PCP and consider referral to a [facility] in out patient setting to consider appropriateness of cardiac stress test to take a closer look. Unlike a RBBB, there is a strong association with ischemic heart disease and LBBB. Patient with no known history of CAD and the two cardiac risk factors perceived are HTN and HLD. Will sign off today. Please feel free to contact the Hospitalist team for any further problems that might arise we can be of assistance. Thank you for the referral. 2. History of hypertension hyperlipidemia Resume patient's home medications as tolerated. Time Spent With Patient Time with patient: less than 15 minutes
[2018-05-18] MEDS: SENNOSIDES 8.6 MG TABLET 17.2 MG PO (20:21)
[2018-05-18] MEDS: ACETAMINOPHEN 325 MG TABLET 650 MG PO (20:21)
[2018-05-18] MEDS: cloNIDine 0.1 MG TABLET PO (20:22)
--- NOTE | 2018-05-18 22:17 | PC.NURSE ---
SHIFT NOTE pt slightly lethargic today compared to last evening. allowed to rest. upon wakening, noted pt's SpO2 at 82% on room air. pt encouraged to do deep breathing exercises and IS but unable to increased O2 sats on room air, thus 2L O2 via NC placed. RT at bedside for breathing treatment and to encourage/educate pt on proper IS use. PRN oxycodone withheld. back dressing with shadow drainage but otherwise CDI. pt noted to be febrile this shift, Tmax at 100.6. PRN tylenol administered, ice packs applied, blamkets removed, and fan placed in room to help with cooling measures. bustillo remains intact. IVF remains intact. call light within reach.
[2018-05-19] VITALS (18 sets, daily range): BP systolic 91–130; BP diastolic 57–79; PULSE 70–92; RESP 16–20; TEMP 36.4–38.3; O2SAT 92–98
[2018-05-19] MEDS: PANTOPRAZOLE 40 MG TABLET PO (06:05)
[2018-05-19] MEDS: OXYCODONE IR 5 MG TABLET 10 MG PO ×3 (06:05→16:41)
[2018-05-19] MEDS: SODIUM CHLORIDE 0.9% 1,000 ML 100 ML IV (07:12)
[2018-05-19] MEDS: ALBUTEROL HFA 60 PUFF/8 GM INH INH ×2 (07:51→18:04)
[2018-05-19] MEDS: FLUTICASONE/SALMETEROL 250/50 14 PUFF DISKUS INH ×2 (07:54→17:56)
--- NOTE | 2018-05-19 10:08 | PM.DS.1 ---
History of Present Illness Date Patient Seen: 05/19/18 Time Patient Seen: 10:09 Chief complaint: Spondylosis Narrative: CC: pain/ spinal stenosis, spondylosis, lumbar radiculopathy The patient is a 72-year-old female with chronic low back pain, spondylosis, spinal stenosis and lumbar radiculopathy. She has failed non operative treatment and has elected for posterior spinal fusion. She underwent a posterior spinal fusion with Dr. Jenkins on 05/17/2018. She was admitted postoperatively to the floor. During the operation she was noted to have a new onset left bundle-branch block. Internal medicine was consulted for cardiac recommendations. Discharge Providers Date of admission: 05/17/18 06:36 Primary care physician: JEANETTE Woodall Consults: 05/17/18 14:01 Consult to Occupational Therapy Evaluate & Treat Comment: Physician Instructions: Evaluate and treat Consult to Physical Therapy Evaluate & Treat Comment: Physician Instructions: Evaluate and Treat 05/17/18 16:42 Consult to Occupational Therapy Evaluate & Treat Comment: Physician Instructions: Evaluate and treat Consult to Physical Therapy Evaluate & Treat Comment: Physician Instructions: Evaluate and Treat Discharge provider: Flaca Muse MD Discharge Date: 05/19/18 Summary Discharge Diagnosis: 1. Lumbar spondylosis with spinal stenosis and radiculopathy 2. Left bundle-branch block Status post 1. L4-5, L5-S1 Postero-lateral and posterior interbody fusion 2. L4-5, L5-S1 interbody cage placement. 3. L4-5, L5-S1 decompressive laminectomy with bilateral facetecomies 4. L4-5, L5-S1 Posterior segmental instrumentation 5. [place] of bone marrow from iliac crest 6. Utilization of microsurgical technique and operating microscope Hospital Course: The patient was admitted postoperatively to the hospital after her posterior spinal fusion for lumbar spondylosis, spinal stenosis with radiculopathy. Intraoperatively she developed a new left bundle branch block. She received an internal medicine consult on the floor and cardiac monitoring. She was able to get up with Physical therapy and mobilized. She tolerated a p.o. diet and p.o. pain medications. Her troponins were trended and she was ultimately cleared by Internal Medicine as safe for discharge regarding her cardiac status. Patient will be encouraged to follow-up with her primary care provider for possible outpatient cardiology consult. Her postoperative antibiotics were completed. She did additionally have some hypotension postoperatively her antihypertensives were held and her blood pressure has remained stable and mental function stable. On postoperative day 2 Daniels catheter was removed. Pain was controlled and the patient was appropriate for discharge home. Status at Discharge Cognitive/behavioral status at discharge: Appropriate Functional status at discharge: independent ambulation Overall status at discharge: patient is progressing back to baseline Time Spent with Patient Less than 30 minutes Exam Vital Signs (past 8 hours): - 05/19/18 04:20 05/19/18 07:55 Temperature 98.1 F Pulse Rate 71 70 Respiratory Rate 16 16 Blood Pressure 99/65 Pulse Oximetry 94 95 Fraction of Inspired Oxygen 21 Oxygen Delivery Method Room Air Oxygen Flow Rate 0 Narrative Exam Narrative: General examination: Alert and oriented no acute distress vital signs stable HEENT exam: Normocephalic atraumatic Respiratory: Breathing unlabored on room air lungs clear to auscultation Cardiac: Regular rate and rhythm Abdomen: Soft nontender exam: Daniels catheter in place-scheduled removal this morning Spine: Dressing clean dry and intact no erythema or signs or symptoms of infection Musculoskeletal examination: Bilateral upper extremities nontender no erythema or swelling full range of motion. Bilateral lower extremities with no swelling or tenderness to palpation no erythema. Patient demonstrates active knee flexion extension dorsiflexion and plantar flexion with equal strength 5/5 bilaterally. She endorses gross sensation to light touch bilaterally Objective Labs Result Diagrams: 05/18/18 05:36 05/18/18 05:36 Discharge Plan Discharge Plan Patient Disposition: Home, Self-Care Discharge comment: Discharge home Discharge Med Rec/Prescriptions Prescriptions: New docusate sodium 100 mg Capsule 100 mg PO BID Qty: 30 RF: 0 oxycodone 5 mg Tablet 5 mg PO Q3HR PRN (Reason: Pain, Severe (7-10)) Qty: 40 RF: 0 ondansetron HCl 4 mg tablet 4 mg PO BID-TID PRN (Reason: nausea and vomiting) Qty: 7 RF: 0 acetaminophen 325 mg Tablet 650 mg PO Q6HR PRN (Reason: Pain, Mild (1-3)) Qty: 30 RF: 0 Continue fluticasone-salmeterol [Advair Diskus] 250-50 mcg/dose Blister With Device 1 inh INHALATION BID RF: 0 clonidine HCl 0.1 mg Tablet 0.1 mg PO BID RF: 0 metoprolol succinate 50 mg Tablet Extended Release 24 Hr 50 mg PO QAM RF: 0 hydrochlorothiazide 50 mg Tablet 50 mg PO DAILY RF: 0 simvastatin 10 mg Tablet 10 mg PO QPM RF: 0 citalopram 20 mg Tablet 20 mg PO QAM RF: 0 esomeprazole magnesium 40 mg Capsule,Delayed Release(Dr/Ec) 40 mg PO QPM RF: 0 doxazosin 4 mg Tablet 2 mg PO BID RF: 0 montelukast 10 mg Tablet 10 mg PO QPM RF: 0 albuterol sulfate 90 mcg/actuation Hfa Aerosol Inhaler 2 puff INHALATION Q4-6H PRN (Reason: copd) RF: 0 losartan 100 mg Tablet 100 mg PO QAM RF: 0 loratadine 10 mg Capsule 1 tab PO PRN PRN (Reason: seasonal allergies) RF: 0 Discontinued diclofenac sodium 50 mg Tablet,Delayed Release (Dr/Ec) 50 mg PO QAM RF: 0 Follow up/Referrals: Claudia Chatman ARNP [Primary Care Provider] - (Follow up with her PCP regarding the bundle branch block) Alyssa Chavez MD [Physician] - (Follow up with [facility] in 2 weeks for wound check) Provider Discharge Instructions Diet: Diet as Tolerated Activity: WBAT, use walker to ambulate, no bending/twisting, lifting greater than 5 lbs, Cold/Heat Therapy: May apply ice to surgery site for 20 min several times a day Other treatments: Keep dressing clean dry and intact Skin/Wound/Dressing Care Report to your healthcare provider any signs of infection, such as:: chills, fever, night sweats, increased pain and unusual drainage Dressing: Keep dressing clean dry and intact Discharge Data Primary Care Provider: Claudia Chatman Attending Provider: Alyssa Chavez Admit Date/Time: 05/17/18 06:36 Quality VTE Deep Vein Thrombosis/Pulmonary Embolism Present on Admission: No
[2018-05-19] MEDS: CITALOPRAM 20 MG TABLET PO (11:23)
[2018-05-19] MEDS: DOCUSATE 100 MG CAPSULE PO ×2 (11:23→20:25)
[2018-05-19] MEDS: hydroCHLOROthiazide 25 MG TABLET 50 MG PO (11:24)
--- NOTE | 2018-05-19 12:08 | PT.IPTN ---
Current Diagnoses Other secondary scoliosis, lumbar region (05/17/18) Other spondylosis with radiculopathy, lumbar region (05/17/18) Spinal stenosis, lumbar region without neurogenic claudication (05/17/18) Surgery Performed Operation Date: 05/17/18 07:45 Actual Procedures p L4-5,L5-S1 TLIF w/Posterior Instru. - Alyssa Chavez MD Physical Therapy Treatment Note M2 PT-IP Current Condition Start: 05/17/18 15:25 Freq: NEEDED Status: Active Protocol: Document 05/18/18 10:41 RCC (Rec: 05/18/18 10:53 RCC [id number]) Physical Therapy Current Condition Current Condition Evaluation Date 05/18/18 Treatment Diagnosis L4-S1 TLIF 05/17/2018, impaired mobility Onset Date 05/17/18 Precautions Lumbar Precautions Log Roll No Twisting Limit Bending Lifting Restriction of 10 lbs Gait Belt above Incisional Area Weight Bearing Status Weight Bearing Status Weight Bear as Tolerated M3 PT-IP Subjective Start: 05/17/18 15:25 Freq: NEEDED Status: Active Protocol: Document 05/19/18 10:40 CLB (Rec: 05/19/18 12:08 CLB [id number]) Subjective Physical Therapy Visit Type Type Treatment Note Visit Start Time 10:40 Visit Stop Time 11:15 Total Visit Minutes 25 Number of GOVERNMENT TEACHER Visits 1 Physical Therapy Visit Comments Patient Comments Pt and would like her to get around better before going home. Therapy Pain Assessment Pain When Pain Assessed At Rest Pain Present Pain Present Pain Reported Location Back Intensity 6 Scale Used Numeric (1 - 10) Pain Management Techniques Modification of Treatment M4 PT-IP Mobility and Gait Start: 05/17/18 15:25 Freq: NEEDED Status: Active Protocol: Document 05/19/18 10:40 CLB (Rec: 05/19/18 12:08 CLB [id number]) PT-Bed Mobility Assessment Rolling Type of Rolling Log Rolling Level of Assist Moderate Assistance 1 Person Assistance Scooting Scooting Up and Down in Bed Minimal Assistance PT-Transfer Assessment Sit to and From Stand Sit to and from Stand Moderate Assistance Equipment Transfer Assistive Device Gait Belt Front Wheeled Walker Transfers Transfer Destination Bed Transfer Ability Level of Assist Minimal Assistance Moderate Assistance Comments Mobility Comments Increased pain in hips and back of legs. Gait Assessment Gait Gait Assistance Required: Contact Guard Assist Distance (Feet) (feet) 5 Assistive Devices Assistive Device Gait Belt Front Wheeled Walker Gait Deviations General Gait Pattern Antalgic Decreased Stride Length Decreased Feet Clearance Factors Limiting Gait Function Factors Limiting Gait Function Decreased Activity Tolerance Decreased Strength Pain Poor Balance Comments Gait Comments BP sitting 106/67, standing 106/57, supine 131/70 , no c/o dizziness. Pt unable to ambulate further due to pain. M5 PT-IP Objective Assessments Start: 05/17/18 15:25 Freq: NEEDED Status: Active Protocol: Document 05/18/18 10:41 RCC (Rec: 05/18/18 10:53 RCC [id number]) Orientation Orientation/Cognition Level of Alertness Alert Strength Comments Strength Comments able to perform a SLR bilaterally when being assisted with donning socks Sensation Assessment Sensation Gross Sensation WNL Other Assessments Other Other Assessments R foot severe hallux valgus, pt reports OA. M6 PT-IP Treatment Start: 05/17/18 15:25 Freq: NEEDED Status: Active Protocol: Document 05/18/18 10:41 RCC (Rec: 05/18/18 10:53 RCC [id number]) Physical Therapy Treatment Education Education Provided Precautions Post-Op Packet Safety M7 PT-IP Assessment and Plan Start: 05/17/18 15:25 Freq: NEEDED Status: Active Protocol: Document 05/19/18 10:40 CLB (Rec: 05/19/18 12:08 CLB [id number]) PT Summary Assessment and Plan Summary Impairments Pain Strength Balance Bed Mobility Transfers Gait Activity Tolerance Assessment Summary POD #2 Pt needed increased assist with sit-stand from chair and continues to need Mod A with bed mobility. Pt will need to trial stairs before d/c. Pt's unsure if he can give her the assist she needs at home. Goals Bed Mobility Goal Standby Assistance Transfer Goal Standby Assistance Gait Goal Standby Assistance Front Wheel Walker Gait Distance 150 Other Goals up/down 2 steps with no rail, CGA, and SPC Days to Meet Goals 3 Frequency of Treatment Frequency Of Treatment Twice a Day Treatment Plan Physical Therapy Treatment Plan Bed Mobility Training Transfer Training Gait Training Therapeutic Exercise Balance Retraining Discharge Planning Hot or Cold Pack Neuromuscular Re-ed Recommendations To Nursing Amount of Assist Needed 2 Person Assist Discharge Recommendations PT Discharge Recommendations Home with Assistance
--- NOTE | 2018-05-19 14:22 | PT.IPTN ---
Current Diagnoses Other secondary scoliosis, lumbar region (05/17/18) Other spondylosis with radiculopathy, lumbar region (05/17/18) Spinal stenosis, lumbar region without neurogenic claudication (05/17/18) Surgery Performed Operation Date: 05/17/18 07:45 Actual Procedures p L4-5,L5-S1 TLIF w/Posterior Instru. - Alyssa Chavez MD Physical Therapy Treatment Note M2 PT-IP Current Condition Start: 05/17/18 15:25 Freq: NEEDED Status: Active Protocol: Document 05/18/18 10:41 RCC (Rec: 05/18/18 10:53 RCC [id number]) Physical Therapy Current Condition Current Condition Evaluation Date 05/18/18 Treatment Diagnosis L4-S1 TLIF 05/17/2018, impaired mobility Onset Date 05/17/18 Precautions Lumbar Precautions Log Roll No Twisting Limit Bending Lifting Restriction of 10 lbs Gait Belt above Incisional Area Weight Bearing Status Weight Bearing Status Weight Bear as Tolerated M3 PT-IP Subjective Start: 05/17/18 15:25 Freq: NEEDED Status: Active Protocol: Document 05/19/18 13:30 CLB (Rec: 05/19/18 14:22 CLB [id number]) Subjective Physical Therapy Visit Type Type Treatment Note Visit Start Time 13:30 Visit Stop Time 14:00 Total Visit Minutes 30 Number of WELDER/INSTALLER Visits 2 Physical Therapy Visit Comments Patient Comments I don't feel ready to go home I feel very shakey and weak. Therapy Pain Assessment Pain When Pain Assessed During Mobility Pain Present Pain Present Pain Reported Location Back Intensity 8 Scale Used Numeric (1 - 10) Pain Management Techniques Modification of Treatment M4 PT-IP Mobility and Gait Start: 05/17/18 15:25 Freq: NEEDED Status: Active Protocol: Document 05/19/18 13:30 CLB (Rec: 05/19/18 14:22 CLB [id number]) PT-Bed Mobility Assessment Rolling Type of Rolling Log Rolling Level of Assist Moderate Assistance 1 Person Assistance Supine to Sit Supine to Sit Moderate Assistance 1 Person Assistance Scooting Scooting to Edge of Bed Contact Guard Assistance PT-Transfer Assessment Sit to and From Stand Sit to and from Stand Minimal Assistance 1 Person Assistance Equipment Transfer Assistive Device Gait Belt Front Wheeled Walker Transfers Transfer Destination Chair Toilet Transfer Ability Level of Assist Minimal Assistance Moderate Assistance Comments Mobility Comments Pt continues to need Min-Mod A for all mobility. BP sitting, 116/77, standing 129/66. Gait Assessment Gait Gait Assistance Required: Contact Guard Assist Distance (Feet) (feet) 10 Assistive Devices Assistive Device Gait Belt Front Wheeled Walker Gait Deviations General Gait Pattern Antalgic Decreased Stride Length Decreased Feet Clearance Factors Limiting Gait Function Factors Limiting Gait Function Decreased Activity Tolerance Decreased Strength Pain Poor Balance Comments Gait Comments Pt fatigues quickly with ambulation and has not been able to ambulate household distances at this time. Stair Climbing Assessment Evaluation Level of Assist On Stairs Minimal Assistance Moderate Assistance 1 Person Assistance Devices Stair Climbing Assistive Devices Front Wheel Walker Technique/Endurance Stair Climbing Direction Ascend and Descend Stair Climbing Technique Step to Step Number of Steps Climbed 1 Query Text: Stair Climbing Set # Repetitions (reps) 1 Comments Stair Climbing Comments Pt needed Min A-Mod A and cues for safety during stair climbing. Pt will need to attempt stairs again before d/ c home for safety. PT-Balance Assessment Sitting Balance and Reactions Static Sitting Balance Ability Good Dynamic Sitting Balance Ability Good Standing Balance and Reactions Static Standing Balance Ability Fair Dynamic Standing Balance Ability Fair Device Used FWW M5 PT-IP Objective Assessments Start: 05/17/18 15:25 Freq: NEEDED Status: Active Protocol: Document 05/18/18 10:41 RCC (Rec: 05/18/18 10:53 [id number] Orientation Orientation/Cognition Level of Alertness Alert Strength Comments Strength Comments able to perform a SLR bilaterally when being assisted with donning socks Sensation Assessment Sensation Gross Sensation WNL Other Assessments Other Other Assessments R foot severe hallux valgus, pt reports OA. M6 PT-IP Treatment Start: 05/17/18 15:25 Freq: NEEDED Status: Active Protocol: Document 05/18/18 10:41 RCC (Rec: 05/18/18 10:53 [id number] Physical Therapy Treatment Education Education Provided Precautions Post-Op Packet Safety M7 PT-IP Assessment and Plan Start: 05/17/18 15:25 Freq: NEEDED Status: Active Protocol: Document 05/19/18 13:30 CLB (Rec: 05/19/18 14:22 CLB [id number]) PT Summary Assessment and Plan Potential Rehabilitation Potential Good Status of Condition at Evaluation Evolving Summary Impairments Pain Strength Balance Bed Mobility Transfers Gait Activity Tolerance Assessment Summary Pt trialed stairs needing Min- Mod A and cues for safety, pt continues to need Mod A for log roll. Pt will need to successfully perform stairs training before d/c home. Pt would benefit from another day to increase strength. Goals Bed Mobility Goal Standby Assistance Transfer Goal Standby Assistance Gait Goal Standby Assistance Front Wheel Walker Gait Distance 150 Other Goals up/down 2 steps with no rail, CGA, and SPC or up down platform stair w/FWW. Days to Meet Goals 3 Frequency of Treatment Frequency Of Treatment Twice a Day Treatment Plan Physical Therapy Treatment Plan Bed Mobility Training Transfer Training Gait Training Therapeutic Exercise Balance Retraining Discharge Planning Hot or Cold Pack Neuromuscular Re-ed Recommendations To Nursing Amount of Assist Needed 2 Person Assist Discharge Recommendations PT Discharge Recommendations Home with Assistance
--- NOTE | 2018-05-19 15:31 | CM.DANOTE ---
Discharge Planning/Care Management CM Discharge Assessment Start: 05/19/18 15:28 Freq: Status: Active Protocol: Document 05/19/18 15:28 (Rec: 05/19/18 15:31 [id number]) Discharge Planning Assessment Assigned Paper Rewinder INSTRUMENTATION AND CONTROL TECHNICIAN Advance Directives? Yes Advance Directives on File No History Provided By Patient Medical Record Has Patient been admitted in last 30 No days? Prior Living Arrangements House Household Members spouse Independent with ADL's Yes Is patient alert and oriented? Yes DME Already Rented / Owned FWW / Walker Cane Patient/Family Preference OP PT Therapy Discharge Plan Home Review Status In Process Next Review Date 05/19/18 Next Review Type Continued Stay Review Met with patient: spouse at bedside. Per MD patient to discharge home today. Patient is not comfortable with discharge home today due to overall weakness. Per PT patient will need to attempt stair training prior to discharging home. Patient not safe to discharge home today. Called Dr. Muse and she is agreeable to canceling discharge. Will reassess tomorrow. Patient is hopeful to discharge home but is willing to discuss SNF if needed.
[2018-05-19] MEDS: MONTELUKAST 10 MG TABLET PO (17:18)
[2018-05-19] MEDS: SIMVASTATIN 10 MG TABLET PO (17:18)
--- NOTE | 2018-05-19 19:14 | PC.NURSE ---
[place] shift note: Patient awake and alert, at bedside providing supportive care. Up out of bed to the chair with 1PA, and to bathroom. Uses FWW, steady gait noted. Understands the importance log roll, no bending, and no heavy lifting restrictions. Slow mobility to get out of bed, improved mobility once on feet. Reports much improved strength. VSS, Blood pressure has been systolic in 120's through the day. 129/68. No c/o dizziness, chest pain, or SOB. Patient tolerating PO intake, encouraging fluids. Calls appropriately for staff assistance. SCDs in place. RT at bedside provided home Respiratory treatments.
[2018-05-19] MEDS: DOXAZOSIN 2 MG TABLET PO (20:24)
[2018-05-19] MEDS: cloNIDine 0.1 MG TABLET PO (20:25)
[2018-05-19] MEDS: SENNOSIDES 8.6 MG TABLET 17.2 MG PO (20:25)
[2018-05-20] VITALS: O2SAT 94
[2018-05-20] MEDS: OXYCODONE IR 5 MG TABLET 10 MG PO ×3 (00:23→10:46)
[2018-05-20] MEDS: PANTOPRAZOLE 40 MG TABLET PO (05:38)
[2018-05-20] MEDS: MAGNESIUM HYDROXIDE 30 ML UDC PO (05:43)
[2018-05-20 05:58] VITALS: BP 131/78; PULSE 77; RESP 20; TEMP 37.2; O2SAT 94
--- NOTE | 2018-05-20 06:12 | PC.NURSE ---
No BM since 05/16/18 given warm prune juice & MOM, will monitor.
[2018-05-20 08:11] VITALS: BP 134/75; PULSE 80; RESP 16; TEMP 37.4; O2SAT 92
[2018-05-20] MEDS: CITALOPRAM 20 MG TABLET PO (08:51)
[2018-05-20] MEDS: DOCUSATE 100 MG CAPSULE PO (08:51)
[2018-05-20] MEDS: cloNIDine 0.1 MG TABLET PO (08:51)
[2018-05-20] MEDS: METOPROLOL ER 50 MG TABLET PO (08:51)
[2018-05-20] MEDS: hydroCHLOROthiazide 25 MG TABLET 50 MG PO (08:52)
[2018-05-20] MEDS: LOSARTAN 50 MG TABLET 100 MG PO (08:52)
[2018-05-20] MEDS: FLUTICASONE/SALMETEROL 250/50 14 PUFF DISKUS INH (08:52)
[2018-05-20] MEDS: DOXAZOSIN 2 MG TABLET PO (08:53)
--- NOTE | 2018-05-20 09:08 | CM.DPC ---
Patient to discharge home today. Met with patient: Patient agreeable and eager to return home. Spouse will provide transportation. No discharge needs or concerns at this time. Plan: Patient to discharge home today with supportive family.
[2018-05-20 10:00] VITALS: O2SAT 95
--- NOTE | 2018-05-20 11:20 | PT.IPTN ---
Current Diagnoses Other secondary scoliosis, lumbar region (05/17/18) Other spondylosis with radiculopathy, lumbar region (05/17/18) Spinal stenosis, lumbar region without neurogenic claudication (05/17/18) Surgery Performed Operation Date: 05/17/18 07:45 Actual Procedures p L4-5,L5-S1 TLIF w/Posterior Instru. - Alyssa Chavez MD Physical Therapy Treatment Note M2 PT-IP Current Condition Start: 05/17/18 15:25 Freq: NEEDED Status: Active Protocol: Document 05/18/18 10:41 RCC (Rec: 05/18/18 10:53 RCC [id number]) Physical Therapy Current Condition Current Condition Evaluation Date 05/18/18 Treatment Diagnosis L4-S1 TLIF 05/17/2018, impaired mobility Onset Date 05/17/18 Precautions Lumbar Precautions Log Roll No Twisting Limit Bending Lifting Restriction of 10 lbs Gait Belt above Incisional Area Weight Bearing Status Weight Bearing Status Weight Bear as Tolerated M3 PT-IP Subjective Start: 05/17/18 15:25 Freq: NEEDED Status: Active Protocol: Document 05/20/18 09:05 CLB (Rec: 05/20/18 11:20 CLB [id number]) Subjective Physical Therapy Visit Type Type Treatment Note Visit Start Time 09:05 Visit Stop Time 09:30 Total Visit Minutes 25 Number of VP COMMUNICATIONS Visits 25 Physical Therapy Visit Comments Patient Comments Pt states she is feeling better today. Therapy Pain Assessment Pain When Pain Assessed During Mobility Pain Present Pain Present Pain Reported Location Back Intensity 5 Scale Used Numeric (1 - 10) Pain Management Techniques Modification of Treatment M4 PT-IP Mobility and Gait Start: 05/17/18 15:25 Freq: NEEDED Status: Active Protocol: Document 05/20/18 09:05 CLB (Rec: 05/20/18 11:20 CLB [id number]) PT-Bed Mobility Assessment Rolling Type of Rolling Log Rolling Level of Assist Standby Assistance Supine to Sit Supine to Sit Standby Assistance Scooting Scooting to Edge of Bed Standby Assistance PT-Transfer Assessment Sit to and From Stand Sit to and from Stand Contact Guard Assistance Use of Upper Extremities Equipment Transfer Assistive Device Gait Belt Front Wheeled Walker Transfers Transfer Destination Chair Toilet Transfer Ability Level of Assist Standby Assistance Contact Guard Assistance Comments Mobility Comments Pt improving with bed mobility and transfer ability. BP in standing 116/62. Gait Assessment Gait Gait Assistance Required: Contact Guard Assist Distance (Feet) (feet) 60 Able to Maintain Weight Bearing Status Yes During Gait Assistive Devices Assistive Device Gait Belt Front Wheeled Walker Gait Deviations General Gait Pattern Antalgic Decreased Stride Length Decreased Feet Clearance Flexed Trunk Factors Limiting Gait Function Factors Limiting Gait Function Decreased Activity Tolerance Decreased Strength Pain Poor Balance Comments Gait Comments Pt increased ambulation to ~ 60ft with cues for posture. Pt had no LOB, lightheadedness or dizziness. Stair Climbing Assessment Comments Stair Climbing Comments Will assess when arrives after his dentist appt . M5 PT-IP Objective Assessments Start: 05/17/18 15:25 Freq: NEEDED Status: Active Protocol: Document 05/18/18 10:41 RCC (Rec: 05/18/18 10:53 RCC [id number]) Orientation Orientation/Cognition Level of Alertness Alert Strength Comments Strength Comments able to perform a SLR bilaterally when being assisted with donning socks Sensation Assessment Sensation Gross Sensation WNL Other Assessments Other Other Assessments R foot severe hallux valgus, pt reports OA. M6 PT-IP Treatment Start: 05/17/18 15:25 Freq: NEEDED Status: Active Protocol: Document 05/18/18 10:41 RCC (Rec: 05/18/18 10:53 [facility] [id number]) Physical Therapy Treatment Education Education Provided Precautions Post-Op Packet Safety M7 PT-IP Assessment and Plan Start: 05/17/18 15:25 Freq: NEEDED Status: Active Protocol: Document 05/20/18 09:05 CLB (Rec: 05/20/18 11:20 CLB [id number]) PT Summary Assessment and Plan Potential Rehabilitation Potential Good Status of Condition at Evaluation Evolving Summary Impairments Pain Strength Balance Bed Mobility Transfers Gait Activity Tolerance Assessment Summary Pt doing better today with all mobility. Pt was SBA for bed mobility and ambulated ~60ft in staples. Pt had JESUS, RN informed. Goals Bed Mobility Goal Standby Assistance Transfer Goal Standby Assistance Gait Goal Standby Assistance Front Wheel Walker Gait Distance 150 Other Goals up/down 2 steps with no rail, CGA, and SPC or up down platform stair w/FWW. Frequency of Treatment Frequency Of Treatment Twice a Day Treatment Plan Physical Therapy Treatment Plan Bed Mobility Training Transfer Training Gait Training Therapeutic Exercise Balance Retraining Discharge Planning Hot or Cold Pack Neuromuscular Re-ed Recommendations To Nursing Amount of Assist Needed 1 Person Assist Discharge Recommendations PT Discharge Recommendations Home with Assistance
--- NOTE | 2018-05-20 12:26 | OT.IP.TRT ---
Current Diagnoses Other secondary scoliosis, lumbar region (05/17/18) Other spondylosis with radiculopathy, lumbar region (05/17/18) Spinal stenosis, lumbar region without neurogenic claudication (05/17/18) Surgery Performed Operation Date: 05/17/18 07:45 Actual Procedures p L4-5,L5-S1 TLIF w/Posterior Instru. - Alyssa Chavez MD Occupational Therapy Treatment Note M2 OT-IP Current Condition Start: 05/18/18 15:47 Freq: Status: Active Protocol: Document 05/18/18 15:47 [facility] (Rec: 05/18/18 15:57 [facility] [id number]) Occupational Therapy Current Condition Current Condition Evaluation Date 05/18/18 Treatment Diagnosis Lumbar stenosis Diagnosis Onset Date 05/17/18 Post Operative Precautions Lumbar Precautions Log Roll No Twisting Limit Bending Lifting Restriction of 10 lbs Gait Belt above Incisional Area Weight Bearing Status Weight Bearing Status Weight Bear as Tolerated M3 OT- IP Subjective and Pain Start: 05/18/18 15:47 Freq: Status: Active Protocol: Document 05/20/18 12:15 [facility] (Rec: 05/20/18 12:25 [facility] [id number]) OT- Subjective Occupational Therapy Visit Type Type Treatment Note Visit Start Time 11:15 Visit Stop Time 12:00 Total Visit Minutes 45 Occupational Therapy Visit Comments Patient Comments Pt wanting to shower. OT Pain Assessment Pain When Pain Assessed At Rest Pain Present Pain Present Pain Reported Location Back Intensity 5 Scale Used Numeric (1 - 10) M4 OT- IP ADL's Start: 05/18/18 15:47 Freq: Status: Active Protocol: Document 05/20/18 12:15 [facility] (Rec: 05/20/18 12:25 [facility] [id number]) OT ADL-Dressing General Eval Upper Body Dressing Ability Standby Assistance Lower Body Dressing Ability Maximum Assistance Areas Needing Assistance Socks OT ADL-Toileting General Evaluation Toileting Ability Standby Assistance Devices Toileting Assistive Devices Grab Bars OT ADL-Bathing Bathing Type Bathing Type Shower General Evaluation Bathing Ability Moderate Assistance Areas Needing Assistance Wash/Dry Back Wash/Dry Perineal Area Wash/Dry Lower Extremities Devices Bathing Equipment Shower Chair with Arms Comments OT Bathing Comments Pt's present for training for ADl's, suggested to akbar LLE first. Pt's able to show good safety for all needs. Pt able to recall all back precautions and doing better to incorporate during Adl and functional mobility needs. Protocol: Document 05/20/18 12:15 [facility] (Rec: 05/20/18 12:25 [facility] [id number]) OT- Balance Assessment Standing Balance and Reactions Static Standing Balance Ability Good Dynamic Standing Balance Ability Fair M8 OT- IP Objective Assessments Start: 05/18/18 15:47 Freq: Status: Active Protocol: Document 05/18/18 15:47 [facility] (Rec: 05/18/18 15:57 [facility] [id number]) OT Gross Range of Motion Upper Extremity Range of Motion ROM Impairments Grossly WFL for BUE. OT Strength Comments Strength Comments Decreased ability for BUE right greater than left to assist with bed mobility. OT-Muscle Tone Assessment Muscle Tone WNL Yes M9 OT- IP Assessment and Plan Start: 05/18/18 15:47 Freq: Status: Active Protocol: Document 05/20/18 12:15 [facility] (Rec: 05/20/18 12:25 [facility] [id number]) OT Summary Assessment and Plan Summary Progress Towards Goals Progressing Toward Goals Assessment Summary Pt doing well today and present for training for all Adl needs and able to show good safety and understanding. Pt looking to go home today. Frequency of Treatment Frequency Of Treatment Once a Day Discharge Recommendations OT Discharge Recommendations Home with Assistance Home Equipment Needs BSC, shower chair, HHSP
--- NOTE | 2018-05-20 13:30 | PC.NURSE ---
DISCHARGE NOTE: Patient discharged home this shift. Discharge instrustions and prescriptions reviewed with patient and spouse. No questions for this RN at time of discharge. Patient verbalized understanding. Patient belongings with patient. Patient home in POV taken out of hospital via wheelchair.
--- NOTE | 2018-05-20 13:55 | PT.IPTN ---
Current Diagnoses Other secondary scoliosis, lumbar region (05/17/18) Other spondylosis with radiculopathy, lumbar region (05/17/18) Spinal stenosis, lumbar region without neurogenic claudication (05/17/18) Surgery Performed Operation Date: 05/17/18 07:45 Actual Procedures p L4-5,L5-S1 TLIF w/Posterior Instru. - Alyssa Chavez MD Physical Therapy Treatment Note M2 PT-IP Current Condition Start: 05/17/18 15:25 Freq: NEEDED Status: Discharge Protocol: Document 05/18/18 10:41 [facility] (Rec: 05/18/18 10:53 [facility] [id number]) Physical Therapy Current Condition Current Condition Evaluation Date 05/18/18 Treatment Diagnosis L4-S1 TLIF 05/17/2018, impaired mobility Onset Date 05/17/18 Precautions Lumbar Precautions Log Roll No Twisting Limit Bending Lifting Restriction of 10 lbs Gait Belt above Incisional Area Weight Bearing Status Weight Bearing Status Weight Bear as Tolerated M3 PT-IP Subjective Start: 05/17/18 15:25 Freq: NEEDED Status: Discharge Protocol: Document 05/20/18 12:30 [facility] (Rec: 05/20/18 13:55 [facility] [id number]) Subjective Physical Therapy Visit Type Type Treatment Note Visit Start Time 12:30 Visit Stop Time 12:55 Total Visit Minutes 25 Number of [employer]ANT [employer] Visits 4 Physical Therapy Visit Comments Patient Comments Pt ready to trial stairs with . Therapy Pain Assessment Pain When Pain Assessed During Mobility Pain Present Pain Present Pain Reported Location Back Intensity 5 Scale Used Numeric (1 - 10) M4 PT-IP Mobility and Gait Start: 05/17/18 15:25 Freq: NEEDED Status: Discharge Protocol: Document 05/20/18 12:30 [facility] (Rec: 05/20/18 13:55 [facility] [id number]) PT-Bed Mobility Assessment Rolling Type of Rolling Log Rolling Level of Assist Standby Assistance Supine to Sit Supine to Sit Standby Assistance PT-Transfer Assessment Sit to and From Stand Sit to and from Stand Contact Guard Assistance Use of Upper Extremities Equipment Transfer Assistive Device Gait Belt Front Wheeled Walker Transfers Transfer Destination Bed Chair Transfer Ability Level of Assist Standby Assistance Contact Guard Assistance Comments Mobility Comments able to assist pt with bed mobility and sit-stand. Gait Assessment Gait Gait Assistance Required: Standby Assistance Distance (Feet) (feet) 60 Able to Maintain Weight Bearing Status Yes During Gait Assistive Devices Assistive Device Gait Belt Front Wheeled Walker Gait Deviations General Gait Pattern Antalgic Decreased Stride Length Decreased Feet Clearance Flexed Trunk Factors Limiting Gait Function Factors Limiting Gait Function Decreased Activity Tolerance Decreased Strength Pain Comments Gait Comments Pt ambulated SBA in staples ~60ft with good safety awareness and cues for posture. Stair Climbing Assessment Evaluation Level of Assist On Stairs Minimal Assistance 1 Person Assistance Devices Stair Climbing Assistive Devices Front Wheel Walker Technique/Endurance Stair Climbing Direction Ascend and Descend Stair Climbing Technique Step to Step Number of Steps Climbed 1 Query Text: Stair Climbing Set # Repetitions (reps) 1 Comments Stair Climbing Comments Pt successfully trialed stairs with assisting. PT-Balance Assessment Sitting Balance and Reactions Static Sitting Balance Ability Good Dynamic Sitting Balance Ability Good M5 PT-IP Objective Assessments Start: 05/17/18 15:25 Freq: NEEDED Status: Discharge Protocol: Document 05/18/18 10:41 [facility] (Rec: 05/18/18 10:53 [facility] [id number]) Orientation Orientation/Cognition Level of Alertness Alert Strength Comments Strength Comments able to perform a SLR bilaterally when being assisted with donning socks Sensation Assessment Sensation Gross Sensation WNL Other Assessments Other Other Assessments R foot severe hallux valgus, pt reports OA. M6 PT-IP Treatment Start: 05/17/18 15:25 Freq: NEEDED Status: Discharge Protocol: Document 05/18/18 10:41 [facility] (Rec: 05/18/18 10:53 [facility] [id number]) Physical Therapy Treatment Education Education Provided Precautions Post-Op Packet Safety M7 PT-IP Assessment and Plan Start: 05/17/18 15:25 Freq: NEEDED Status: Discharge Protocol: Document 05/20/18 12:30 [facility] (Rec: 05/20/18 13:55 [facility] [id number]) PT Summary Assessment and Plan Potential Rehabilitation Potential Good Status of Condition at Evaluation Evolving Summary Impairments Pain Strength Balance Bed Mobility Transfers Gait Activity Tolerance Assessment Summary Pt able to ambulate household distances and perform stairs safely with . Pt seems appropriate to d/c home when medically stable. Goals Bed Mobility Goal Standby Assistance Transfer Goal Standby Assistance Gait Goal Standby Assistance Front Wheel Walker Gait Distance 150 Treatment Plan Other Recommendations and Next Treatment Pt to d/c home with Focus assist. Recommendations To Nursing Amount of Assist Needed 1 Person Assist Discharge Recommendations PT Discharge Recommendations Home with Assistance
== END 2018-05-20 13:20 | disposition home or self-care (01) | DRG 455 ==
PROVIDERS: Anesthesiology; Internal Medicine; Admitting Provider Orthopaedic Surgery Orthopaedic Surgery of the Spine; PCP Nurse Practitioner Family; Visit Provider Orthopaedic Surgery Orthopaedic Surgery of the Spine
PROC: 0SG00AJ Fusion of Lumbar Vertebral Joint with Interbody Fusion Device, Posterior Approach, Anterior Column, Open Approach (ICD-10-PCS; principal; 2018-05-17 07:45)
DX: M48.061 Spinal stenosis, lumbar region without neurogenic claudication (principal); M47.26 Other spondylosis with radiculopathy, lumbar region; M41.56 Other secondary scoliosis, lumbar region; G47.33 Obstructive sleep apnea (adult) (pediatric); I10 Essential (primary) hypertension; J44.9 Chronic obstructive pulmonary disease, unspecified; E78.5 Hyperlipidemia, unspecified; M48.07 Spinal stenosis, lumbosacral region; M47.27 Other spondylosis with radiculopathy, lumbosacral region; I44.7 Left bundle-branch block, unspecified; F32.9 Major depressive disorder, single episode, unspecified; K21.9 Gastro-esophageal reflux disease without esophagitis; R73.03 Prediabetes
CPT/HCPCS: 36415; 72100; 76001; 80048; 80053; 82550; 82553; 84484; 85025; 93005; 93010; 94640; 94760; 97116; 97162; 97166; 97530; 97535; C1776; C9290; J0330; J0360; J0690; J1170; J2405; J2704; J3010; J7613